=== PATIENT | male | born 1960 | race Caucasian/White ===

== ENCOUNTER 2019-04-11 15:13 | Emergency (ER) | payer BC ==
--- NOTE | 2019-04-11 15:27 | EDM.PDOC ---
ED HPI GENERAL MEDICAL PROBLEM - General Chief Complaint: Lower Extremity Injury/Pain Stated Complaint: INJURED RT ANKLE Time Seen by Provider: 04/11/19 15:14 - History of Present Illness INITIAL COMMENTS - FREE TEXT/NARRATIVE: HISTORY AND PHYSICAL: History of present illness: Patient is a 58-year-old white male presents status post right ankle injury he denies other trauma concern this occurred work when he rolled his ankle when he stepped into a hole he denies other complaints Review of systems: As per history of present illness and below otherwise all systems reviewed and negative. Past medical history: As per history of present illness and as reviewed below otherwise noncontributory. Surgical history: As per history of present illness and as reviewed below otherwise noncontributory. Social history: No reported history of drug or alcohol abuse. Family history: As per history of present illness and as reviewed below otherwise noncontributory. Physical exam: HEENT: Atraumatic, normocephalic, pupils reactive, negative for conjunctival pallor or scleral icterus, mucous membranes moist, throat clear, neck supple, nontender, trachea midline. Lungs: Clear to auscultation, breath sounds equal bilaterally, chest nontender. Heart: S1S2, regular, negative for clicks, rubs, or JVD. Abdomen: Soft, nondistended, nontender. Negative for masses or hepatosplenomegaly. Negative for costovertebral tenderness. Pelvis: Stable nontender. Genitourinary: Deferred. Rectal: Deferred. Extremities: Right ankle has moderate swelling and tenderness in the region of the lateral malleolus was no proximal fibula tenderness Achilles tendon is intact CMS to neurovascular exam are unremarkable. Neuro: Awake, alert, oriented. Cranial nerves II through XII unremarkable. Cerebellum unremarkable. Motor and sensory unremarkable throughout. Exam nonfocal. Diagnostics: Right ankle/foot Therapeutics: To be determined Impression: 1 acute right ankle injury Definitive disposition and diagnosis as appropriate pending reevaluation and review of above. - Related Data Allergies Allergy/AdvReac Type Severity Reaction Status Date / Time cefdinir Allergy Anaphylactic Verified 04/11/19 15:21 Shock Penicillins Allergy Anaphylactic Verified 04/11/19 15:21 Shock Home Meds: Home Meds Aspirin 81 mg PO DAILY 04/11/19 [History] diphenhydrAMINE [Benadryl] 25 mg PO 04/11/19 [History] Review of Systems - Review of Systems Review Of Systems: ROS reveals no pertinent complaints other than HPI. ED EXAM, GENERAL - Physical Exam Exam: See Below (See dictation) Course - Vital Signs Last Recorded V/S: Last Vital Signs Temp 36.3 C 04/11/19 15:23 Pulse 101 H 04/11/19 15:23 Resp 16 04/11/19 15:23 BP 124/77 04/11/19 15:23 Pulse Ox 97 04/11/19 15:23 Departure - Departure Time of Disposition: 17:40 Disposition: Home, Self-Care 01 Condition: Good Clinical Impression: Ankle injury - Discharge Information Referrals: PCP,Not In Area [Primary Care Provider] - Forms: ED Department Discharge Additional Instructions: The following information is given to patients seen in the emergency department who are being discharged to home. This information is to outline your options for follow-up care. We provide all patients seen in our emergency department with a follow-up referral. The need for follow-up, as well as the timing and circumstances, are variable depending upon the specifics of your emergency department visit. If you don't have a primary care physician on staff, we will provide you with a referral. We always advise you to contact your personal physician following an emergency department visit to inform them of the circumstance of the visit and for follow-up with them and/or the need for any referrals to a consulting specialist. The emergency department will also refer you to a specialist when appropriate. This referral assures that you have the opportunity for followup care with a specialist. All of these measure are taken in an effort to provide you with optimal care, which includes your followup. Under all circumstances we always encourage you to contact your private physician who remains a resource for coordinating your care. When calling for followup care, please make the office aware that this follow-up is from your recent emergency room visit. If for any reason you are refused follow-up, please contact the [facility] emergency department at and asked to speak to the emergency department charge nurse. Travis wrap crutches as directed Motrin/Tylenol as directed return as needed as discussed
--- NOTE | 2019-04-11 17:28 | CR ---
HISTORY: Pain after trauma COMPARISON: None available. FINDINGS: The right foot is examined with AP and lateral views. There is no sign of fracture or dislocation. The soft tissues of the foot are normal in appearance without sign of radio-opaque foreign body. Ankle joint effusion and mild anterior ankle swelling, as seen on the accompanying ankle examination. There is a moderate posterior calcaneal spur. IMPRESSION: No sign of acute osseous injury. Moderate plantar calcaneal spur. Mild anterior ankle swelling and mild ankle joint effusion. Dictated by Kishore Leach MD @ Apr 11 2019 5:24PM Signed by Dr. Kishore Leach @ Apr 11 2019 5:27PM
--- NOTE | 2019-04-11 17:28 | CR ---
HISTORY: Pain after twisting the ankle. COMPARISON: None available. FINDINGS: AP, lateral and oblique views of the right ankle were obtained for a total of three views. There is no sign of fracture or dislocation. The ankle mortise is intact. The talar dome is intact. There is a mild ankle joint effusion. There is moderate swelling over the lateral malleolus with no evidence of an underlying fracture. There is mild anterior soft tissue swelling. The soft tissues are otherwise normal in appearance and there is no sign of any radiopaque foreign body. There is a moderate posterior calcaneal spur. IMPRESSION: Moderate lateral and mild anterior soft tissue swelling. No sign of acute osseous injury. Preservation of the relationships of the ankle mortise. Moderate posterior calcaneal spur. Dictated by Kishore Leach MD @ Apr 11 2019 5:24PM Signed by Dr. Kishore Leach @ Apr 11 2019 5:26PM
== END 2019-04-11 18:00 | disposition home or self-care (01) ==
LOC: MW.ED 15:13
DX: S99.911A Unspecified injury of right ankle, initial encounter (principal); Z88.0 Allergy status to penicillin; Z88.1 Allergy status to other antibiotic agents; Z79.82 Long term (current) use of aspirin; X50.1XXA Overexertion from prolonged static or awkward postures, initial encounter; Y93.89 Activity, other specified; Y99.0 Civilian activity done for income or pay
CPT/HCPCS: 73610-26-RT; 73610-RT; 73620-26-RT; 73620-RT; 99282; 99283-25